=== PATIENT | female | born 1940 | race Hispanic/Latino ===

== ENCOUNTER 2017-08-19 09:36 | Emergency (ER) | payer MEDICARE, BC ==
[2017-08-19 09:39] VITALS: BMI 33.2
[2017-08-19] MEDS ORDERED: Sodium Chloride 0.9% 500 ML IV ONE (09:55)
--- NOTE | 2017-08-19 09:55 | C.PDOC ---
History Of Present Illness "I THINK I MAY BE DEHYDRATED MY KIDS TOLD ME TO COME IN". PS AWOKE NORMALLY TODAY, "SUDDENLY JUST FELT BLAH". TRIED TO DRINK ROUTINE COFFEE BUT "I JUST DIDNT FEEL LIKE IT". NO URI, UTI SX, FEVER, NVD, FOCAL PAIN. DENIES CHANGE IN URINATION. DRANK 1L WATER GENERAL INSPECTOR. CO MILD ANXIETY. EXAM NAD NONTOXIC HEENT MMM LUNGS CTA B/L NO W/R/R ABD NEG GOOD TURGOR REMAINDER NEG Time Seen by Provider: 08/19/17 09:45 Chief Complaint (Nursing): Medical Clearance History Per: Patient History/Exam Limitations: no limitations Past Medical History Reviewed: Historical Data, Nursing Documentation, Vital Signs Vital Signs: Last Vital Signs Temp 97.8 F 08/19/17 11:28 Pulse 80 08/19/17 11:28 Resp 16 08/19/17 11:28 BP 140/80 08/19/17 11:28 Pulse Ox 100 08/19/17 12:39 - Medical History PMH: Diabetes, GERD, HTN Family History: States: No Known Family Hx - Social History Hx Tobacco Use: No Hx Alcohol Use: No Hx Substance Use: No - Immunization History Hx Tetanus Toxoid Vaccination: No Hx Influenza Vaccination: Yes Hx Pneumococcal Vaccination: No Review Of Systems Except As Marked, All Systems Reviewed And Found Negative. Constitutional: Negative for: Fever, Chills Cardiovascular: Negative for: Chest Pain, Palpitations Respiratory: Negative for: Cough, Shortness of Breath Gastrointestinal: Negative for: Vomiting Musculoskeletal: Negative for: Neck Pain, Back Pain Skin: Negative for: Rash Neurological: Negative for: Weakness, Headache, Dizziness Psych: Positive for: Anxiety Physical Exam - Physical Exam Appears: Non-toxic, No Acute Distress Skin: Normal Color, Warm, Dry, No Rash, Other (GOOD TURGOR) Head: Normacephalic Eye(s): bilateral: PERRL Nose: Normal Oral Mucosa: Moist Lips: Normal Appearing Neck: Normal ROM Cardiovascular: Rhythm Regular, No Murmur Respiratory: Normal Breath Sounds, No Accessory Muscle Use, No Rales, No Rhonchi , No Wheezing Gastrointestinal/Abdominal: Soft, No Tenderness Extremity: Normal ROM, No Deformity, No Swelling Neurological/Psych: Oriented x3, Normal Speech ED Course And Treatment - Laboratory Results Result Diagrams: 08/19/17 10:19 08/19/17 10:19 O2 Sat by Pulse Oximetry: 100 Pulse Ox Interpretation: Normal Reevaluation Time: 11:19 Reassessment Condition: Improved (PS FEELS BETTER S/P IVF. +UO) Disposition Counseled Patient/Family Regarding: Studies Performed, Diagnosis, Need For Followup - Disposition Referrals: YOUR,PMD [Other] Disposition: HOME/ ROUTINE Disposition Time: 11:19 Condition: IMPROVED Instructions: Dehydration, Adult (DC) Forms: [employer] (Taiwanese) - Clinical Impression Clinical Impression: Dehydration - Scribe Statement The provider has reviewed the documentation as recorded by the Scribe (Ashleigh Valverde) All medical record entries made by the Scribe were at my direction and personally dictated by me. I have reviewed the chart and agree that the record accurately reflects my personal performance of the history, physical exam, medical decision making, and the department course for this patient. I have also personally directed, reviewed, and agree with the discharge instructions and disposition.
[2017-08-19] MEDS ORDERED: Sodium Chloride 0.9% 1,000 ML ONE (10:09)
[2017-08-19 10:22] LABS: BASO % 0.5 % (0.0-2.0); EOS # 0.1 K/uL (0.0-0.7); EOS % 1.7 % (0.0-4.0); HEMOGLOBIN 12.2 g/dL (11.0-16.0); LYMPH # 1.1 K/uL (1.0-4.3); LYMPH % 15.4 % (20.0-40.0); MEAN CELL VOLUME 89.3 fL (81.0-99.0); MEAN CORPUSCULAR HGB CONC 34.7 g/dL (33.0-37.0); MEAN PLATELET VOLUME 7.6 fL (7.2-11.7); MONO # 0.5 K/uL (0.0-0.8); MONO % 7.4 % (0.0-10.0); NEUT # 5.3 K/uL (1.8-7.0); RBC 3.93 Mil/uL (3.80-5.20); WHITE BLOOD COUNT 7.1 K/uL (4.8-10.8)
[2017-08-19 10:35] LABS: BLOOD UREA NITROGEN 30 mg/dL (7-17); CALCIUM 9.6 mg/dl (8.6-10.4); GFR AFRICAN-AMERICAN > 60; GFR NON-AFRICAN AMERICAN 54
[2017-08-19 10:55] LABS: SQUAMOUS EPITHIAL 2 /hpf (0-5); URINE BILIRUBIN NEGATIVE (NEGATIVE); URINE CLARITY Clear (Clear); URINE COLOR Yellow (YELLOW); URINE GLUCOSE (UA) NORMAL (Normal); URINE LEUKOCYTE ESTERASE NEG Leu/uL (Negative); URINE PROTEIN NEGATIVE (NEGATIVE); URINE UROBILINOGEN NORMAL mg/dL (0.2-1.0)
[2017-08-19 10:59] LABS: URINE BLOOD NEGATIVE (NEGATIVE)
[2017-08-19 11:29] VITALS: BP 140/80; PULSE 80; RESP 16; TEMP 97.8
[2017-08-19 11:59] VITALS: O2SAT 100
== END 2017-08-19 11:30 | disposition home or self-care (01) ==
LOC: C.ER 09:36
DX: E86.0 Dehydration (principal); I10 Essential (primary) hypertension; K21.9 Gastro-esophageal reflux disease without esophagitis; E11.9 Type 2 diabetes mellitus without complications
CPT/HCPCS: 80048; 81001; 85025; 96360; 99282; J7040

== ENCOUNTER 2018-01-02 08:28 | Emergency (ER) | payer MEDICARE, BC ==
[2018-01-02 08:28] VITALS: BMI 33.2
[2018-01-02 08:40] VITALS: O2SAT 97
[2018-01-02] MEDS ORDERED: Sodium Chloride 0.9% 1,000 ML IV ONE (09:48)
[2018-01-02] MEDS ORDERED: Sodium Chloride 0.9% 1,000 ML ONE (10:03)
[2018-01-02 10:07] LABS: BASO % 0.6 % (0.0-2.0); EOS # 0.1 K/uL (0.0-0.7); HEMOGLOBIN 12.4 g/dL (11.0-16.0); LYMPH # 0.9 K/uL (1.0-4.3); MEAN CELL VOLUME 88.3 fL (81.0-99.0); MEAN CORPUSCULAR HEMOGLOBIN 30.6 pg (27.0-31.0); MEAN CORPUSCULAR HGB CONC 34.7 g/dL (33.0-37.0); MEAN PLATELET VOLUME 8.4 fL (7.2-11.7); MONO # 0.5 K/uL (0.0-0.8); MONO % 7.1 % (0.0-10.0); NEUT # 5.1 K/uL (1.8-7.0); NEUT % 77.3 % (50.0-75.0); RBC 4.06 Mil/uL (3.80-5.20); RED CELL DISTRIBUTION WIDTH 13.5 % (11.5-14.5); WHITE BLOOD COUNT 6.5 K/uL (4.8-10.8)
[2018-01-02 10:13] LABS: SQUAMOUS EPITHIAL 4 /hpf (0-5); URINE BILIRUBIN NEGATIVE (NEGATIVE); URINE BLOOD 1+ (NEGATIVE); URINE CLARITY Clear (Clear); URINE COLOR Yellow (YELLOW); URINE GLUCOSE (UA) NORMAL (Normal); URINE LEUKOCYTE ESTERASE 1+ Leu/uL (Negative); URINE PROTEIN NEGATIVE (NEGATIVE); URINE UROBILINOGEN NORMAL mg/dL (0.2-1.0)
[2018-01-02 10:18] LABS: ALB/GLOB RATIO 1.6 (1.0-2.1); ALBUMIN 4.3 g/dL (3.5-5.0); ALT/SGPT 27 U/L (9-52); AST/SGOT 23 U/L (14-36); BLOOD UREA NITROGEN 30 mg/dL (7-17); CALCIUM 9.8 mg/dl (8.6-10.4); GFR AFRICAN-AMERICAN 59; GFR NON-AFRICAN AMERICAN 48
--- NOTE | 2018-01-02 10:48 | RAD ---
Chest x-ray single frontal view History: Abdominal pain. Comparison: 01/15/2014 Findings: Biapical pleural thickening with upper lobe granulomatous changes. Mild venous congestion. Tortuous ectatic aorta. Mild cardiomegaly. Degenerative changes in the spine and shoulders. Right peritracheal opacity likely represents prominent vascularity. Impression: Biapical pleural thickening with upper lobe granulomatous changes. Mild venous congestion. Tortuous ectatic aorta. Mild cardiomegaly. Degenerative changes in the spine and shoulders. Right peritracheal opacity likely represents prominent vascularity.
--- NOTE | 2018-01-02 11:14 | CT ---
Date of service: 01/02/2018 PROCEDURE: CT HEAD WITHOUT CONTRAST. HISTORY: lightheadedness COMPARISON: None available. TECHNIQUE: Axial computed tomography images were obtained through the head/brain without intravenous contrast. Radiation dose: Total exam DLP = 755.5 mGy-cm. This CT exam was performed using one or more of the following dose reduction techniques: Automated exposure control, adjustment of the mA and/or kV according to patient size, and/or use of iterative reconstruction technique. FINDINGS: HEMORRHAGE: No intracranial hemorrhage. BRAIN: No mass effect or edema. No atrophy or chronic microvascular ischemic changes. VENTRICLES: Unremarkable. No hydrocephalus. CALVARIUM: Unremarkable. PARANASAL SINUSES: Unremarkable as visualized. No significant inflammatory changes. MASTOID AIR CELLS: Unremarkable as visualized. No inflammatory changes. OTHER FINDINGS: None. IMPRESSION: Normal CT of the Head.
--- NOTE | 2018-01-02 11:41 | C.PDOC ---
History Of Present Illness 77 year old female presents to the ED complaining of feeling lightheaded upon waking up this morning. She states feeling "lousy and tired". She also complains of feeling dehydrated as though she has not been drinking enough water. She is currently feeling better in the ED. She denies any chest pain, SOB , numbness, weakness, fever, cough, abdominal pain, or any other symptoms. Time Seen by Provider: 01/02/18 09:05 Chief Complaint (Nursing): Dizziness/Lightheaded History Per: Patient History/Exam Limitations: no limitations Onset/Duration Of Symptoms: Hrs Current Symptoms Are (Timing): Still Present Past Medical History Reviewed: Historical Data, Nursing Documentation, Vital Signs Vital Signs: Last Vital Signs Temp 98.4 F 01/02/18 12:11 Pulse 65 01/02/18 12:11 Resp 19 01/02/18 12:11 BP 103/65 01/02/18 12:11 Pulse Ox 97 01/02/18 12:37 - Medical History PMH: Diabetes, GERD, HTN Surgical History: No Surg Hx Family History: States: No Known Family Hx - Social History Hx Tobacco Use: No Hx Alcohol Use: No Hx Substance Use: No - Immunization History Hx Tetanus Toxoid Vaccination: No Hx Influenza Vaccination: Yes Hx Pneumococcal Vaccination: No Review Of Systems Except As Marked, All Systems Reviewed And Found Negative. Constitutional: Negative for: Fever Cardiovascular: Positive for: Light Headedness. Negative for: Chest Pain Respiratory: Negative for: Cough, Shortness of Breath Gastrointestinal: Negative for: Abdominal Pain Neurological: Negative for: Weakness, Numbness Physical Exam - Physical Exam Appears: Non-toxic, No Acute Distress Skin: Warm, Dry Head: Atraumatic, Normacephalic Eye(s): bilateral: Normal Inspection Nose: Normal Oral Mucosa: Moist Neck: Supple Chest: Symmetrical Cardiovascular: Rhythm Regular Respiratory: Normal Breath Sounds, No Rales, No Rhonchi, No Wheezing Gastrointestinal/Abdominal: Soft, No Tenderness, No Guarding, No Rebound Extremity: Normal ROM Extremity: Bilateral: Atraumatic, Normal Color And Temperature, Normal ROM Neurological/Psych: Oriented x3, Normal Speech, Normal Cognition, Normal Cranial Nerves, Normal Motor, Normal Sensation, Normal Reflexes, No Other ( focal deficits ) Gait: Steady ED Course And Treatment - Laboratory Results Result Diagrams: 01/02/18 10:03 01/02/18 10:03 ECG: Interpreted By Me, Viewed By Me ECG Rhythm: Sinus Rhythm ECG Interpretation: No Acute Changes Interpretation Of ECG: Normal ST/T waves Rate From EC O2 Sat by Pulse Oximetry: 97 (RA) Pulse Ox Interpretation: Normal - Other Rad CXR X-Ray: Viewed By Me, Read By Radiologist Interpretation: Accession No. : [id number]. Patient Name / ID : HERNAN MADRID V / [id number]. Exam Date : 01/02/2018 10:07:27 ( Approved ). Study Comment : Sex / Age : F / 77Y. Creator : Zion Bella MD. Dictator : Zion Bella MD. Ground Intelligence Officer : Director Of Securities And Real Estate : Zion Bella MD. Approver2 : Report Date : 01/02/2018 10:46:41. My Comment : . Chest x- ray single frontal view. History: Abdominal pain. Comparison: 01/15/2014. Findings: Biapical pleural thickening with upper lobe granulomatous changes. Mild venous congestion. Tortuous ectatic aorta. Mild cardiomegaly. Degenerative changes in the spine and shoulders. Right peritracheal opacity likely represents prominent vascularity. Impression: Biapical pleural thickening with upper lobe granulomatous changes. Mild venous congestion. Tortuous ectatic aorta. Mild cardiomegaly. Degenerative changes in the spine and shoulders. Right peritracheal opacity likely represents prominent vascularity. - CT Scan/US CT Head Other Rad Studies (CT/US): Read By Radiologist, Radiology Report Reviewed CT/US Interpretation: Accession No. : [id number]. Patient Name / ID : HERNAN MADRID [id number] / [id number]. Exam Date : 01/02/2018 10:22:45 ( Approved ). Study Comment : Sex / Age : F / 77Y. Creator : Maisha Pelaez. Dictator : Oswaldo Cervantes MD. Ground Intelligence Officer : Director Of Securities And Real Estate : Oswaldo Cervantes MD. Approver2 : Report Date : 01/02/2018 10:32:34. My Comment : . Date of service: 01/02/2018. PROCEDURE: CT HEAD WITHOUT CONTRAST. HISTORY: lightheadedness. COMPARISON: None available. TECHNIQUE: Axial computed tomography images were obtained through the head/brain without intravenous contrast. Radiation dose: Total exam DLP = 755.5 mGy-cm. This CT exam was performed using one or more of the following dose reduction techniques: Automated exposure control, adjustment of the mA and/or kV according to patient size, and/or use of iterative reconstruction technique. FINDINGS: HEMORRHAGE: No intracranial hemorrhage. BRAIN: No mass effect or edema. No atrophy or chronic microvascular ischemic changes. VENTRICLES: Unremarkable. No hydrocephalus. CALVARIUM: Unremarkable. PARANASAL SINUSES: Unremarkable as visualized. No significant inflammatory changes. MASTOID AIR CELLS: Unremarkable as visualized. No inflammatory changes. OTHER FINDINGS: None. IMPRESSION: Normal CT of the Head. Medical Decision Making Medical Decision Making: Orders: - IV Fluids Labs are WNL's On re-exam, the patient reports improvement of symptoms. Lungs are CTA, heart is RRR, abdomen is soft, non-tender and tolerating PO well. Patient is ambulatory in the ED with steady gait. Follow up with the medical doctor/clinic within 1-2 days. Return if worsened. Disposition - Disposition Referrals: Manas WARREN,Matt Nunez MD [Non-Staff] - Disposition: HOME/ ROUTINE Disposition Time: 12:05 Condition: GOOD Additional Instructions: Follow up with the medica doctor/clinic within 1-2 days. Return if worsened. Instructions: Vertigo (a Type of Dizziness) Forms: [employer] (Tajik) - Clinical Impression Clinical Impression: Lightheadedness, Dehydration - PA / PARTS ROOM CLERK / Resident Statement MD/DO has reviewed & agrees with the documentation as recorded. - Scribe Statement The provider has reviewed the documentation as recorded by the Scribe Jazzy Todd All medical record entries made by the Hitesh were at my direction and personally dictated by me. I have reviewed the chart and agree that the record accurately reflects my personal performance of the history, physical exam, medical decision making, and the department course for this patient. I have also personally directed, reviewed, and agree with the discharge instructions and disposition.
[2018-01-02 12:12] VITALS: BP 103/65; PULSE 65; RESP 19; TEMP 98.4
--- NOTE | 2018-01-03 12:57 | CARD ---
APPROVED REPORT Date of service: 01/02/2018 EKG Measurement Heart [id number] <Conclusion> Normal sinus rhythm Left axis deviation Possible Anterolateral infarct, age undetermined Abnormal ECG
== END 2018-01-02 12:14 | disposition home or self-care (01) ==
LOC: C.ER 08:28
DX: E86.0 Dehydration (principal); R42 Dizziness and giddiness; E11.9 Type 2 diabetes mellitus without complications; I10 Essential (primary) hypertension
CPT/HCPCS: 70450; 71045; 80053; 81001; 82948; 84484; 85025; 93005; 96360; 99285; J7030

== ENCOUNTER 2018-01-14 09:15 | Emergency (ER) | payer MEDICARE, BC ==
[2018-01-14 09:15] VITALS: BMI 33.2
[2018-01-14 09:25] VITALS: BP 141/82; PULSE 71; RESP 20; TEMP 97.7; O2SAT 100
--- NOTE | 2018-01-14 09:37 | C.PDOC ---
History Of Present Illness 77 year old female presents to the emergency department with complaints of a "weird sensation" in her left hand this morning after waking up. She described the sensation as a tightness and tingling in her fingertips, and states that it lasted for less than an hour and resolved by the time she arrived to the ED. She denies pain, injury, or weakness. Time Seen by Provider: 01/14/18 09:23 Chief Complaint (Nursing): Finger,Hand,&Wrist History Per: Patient History/Exam Limitations: no limitations Onset/Duration Of Symptoms: Hrs Current Symptoms Are (Timing): Gone Quality: Tightness, Other (tingling) Past Medical History Reviewed: Historical Data, Nursing Documentation, Vital Signs Vital Signs: Last Vital Signs Temp 97.7 F 01/14/18 09:19 Pulse 71 01/14/18 09:19 Resp 20 01/14/18 09:19 BP 141/82 01/14/18 09:19 Pulse Ox 100 01/14/18 10:29 - Medical History PMH: Diabetes, GERD, HTN Surgical History: No Surg Hx Family History: States: No Known Family Hx - Social History Hx Tobacco Use: No Hx Alcohol Use: No Hx Substance Use: No - Immunization History Hx Tetanus Toxoid Vaccination: No Hx Influenza Vaccination: Yes Hx Pneumococcal Vaccination: No Review Of Systems Musculoskeletal: Negative for: Hand Pain (left) Neurological: Positive for: Other (left hand tightness and tingling). Negative for: Weakness Physical Exam - Physical Exam Appears: Non-toxic, No Acute Distress Skin: Normal Color, Warm, Dry, No Rash Head: Atraumatic, Normacephalic Eye(s): bilateral: Normal Inspection Neck: Normal, Supple Cardiovascular: Rhythm Regular Respiratory: Normal Breath Sounds Extremity: Normal ROM (all extremities), No Tenderness (left hand), Capillary Refill (< 2 seconds), No Deformity, No Swelling (left hand) Pulses: Left Radial: Normal Neurological/Psych: Oriented x3, Normal Speech, Normal Motor, Normal Sensation, Other (strength, tie loader, intact at the left hand) ED Course And Treatment O2 Sat by Pulse Oximetry: 100 (RA) Pulse Ox Interpretation: Normal Medical Decision Making Medical Decision Making: Patient with left hand tingling. Hand exam was normal with no tenderness, normal ROM, no swelling, normal skin turgor and color, normal capillary refill, normal pulse, strength and tie loader normal and sensation intact. Based on history and exam xray not clinically indicated. The patient is asymptomatic and stable for discharge Disposition Counseled Patient/Family Regarding: Diagnosis, Need For Followup - Disposition Referrals: Manas WARREN,Matt Nunez MD [Non-Staff] - Disposition: HOME/ ROUTINE Disposition Time: 09:36 Condition: GOOD Additional Instructions: Follow up with your primary medical doctor or clinic in 2-5 days for further evaluation. Take Tylenol or Motrin for pain. Return to the emergency department at any time if symptoms persist or worsen. Instructions: Paresthesias (DC) Forms: [employer] (Thai) - POA Present On Arrival: None - Clinical Impression Clinical Impression: Paresthesia of hand - PA / PLACEMENT OFFICER / Resident Statement MD/DO has reviewed & agrees with the documentation as recorded. - Scribe Statement The provider has reviewed the documentation as recorded by the Scribe (Alessio Sears) All medical record entries made by the Scribe were at my direction and personally dictated by me. I have reviewed the chart and agree that the record accurately reflects my personal performance of the history, physical exam, medical decision making, and the department course for this patient. I have also personally directed, reviewed, and agree with the discharge instructions and disposition.
== END 2018-01-14 09:39 | disposition home or self-care (01) ==
LOC: C.ER 09:15
DX: R20.2 Paresthesia of skin (principal)